=== PATIENT | female | born 1990 | race African-American/Black ===

== ENCOUNTER 2017-07-05 09:12 | Emergency (ER) | payer OTHER ==
[2017-07-05 09:19] VITALS: BP 184/100; PULSE 90; RESP 16; TEMP 97.6; O2SAT 100
--- NOTE | 2017-07-05 10:10 | PD ---
HPI Chief Complaint: Hypertension Time Seen by Provider: 09:27 Travel History International Travel<30 days: No Contact w/Intl Traveler<30days: No Traveled to known affect area: No History of Present Illness HPI Patient 26-year-old female presents emergency department for evaluation of elevated blood pressure. She states that she had a mild headache earlier today which is resolved. 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 She states that she missed a few days of her blood pressure medication but started up again. This is hydrochlorothiazide 25 mg daily. On arrival she feels well but she was urged by her colleagues to come down and be checked out to make sure that her blood pressure and headache was nothing more severe. States symptoms are mild, resolved, associated high blood pressure, no alleviating or exacerbating factors identified. She does not endorse any chest pain shortness breath abdominal pain nausea vomiting or decreased urination. PFSH Past Medical History Asthma: No Blood Disorders: No Anxiety: Yes Depression: No Heart Rhythm Problems: No Cardiovascular Problems: No High Cholesterol: No Chemotherapy: No Chest Pain: No Congestive Heart Failure: No COPD: No Diabetes: No Diminished Hearing: No Endocrine: No Genitourinary: Yes (UTI) Headaches: Yes Immune Disorder: No Musculoskeletal: No Neurologic: No Psychiatric: No Reproductive: No Respiratory: No Immunizations Current: Yes Radiation Therapy: No Sleep Apnea: No Thyroid Disease: No ?: Not : 3 Para: 1 : 2 Past Surgical History Gynecologic Surgery: Yes (pt states "i had abortions" (two in total)) Other Surgery: No Social History Alcohol Use: No Tobacco Use: No Substance Use: No Allergies-Medications (Allergen,Severity, Reaction): Coded Allergies: No Known Allergies (Verified , 05/15/14) Reported Meds & Prescriptions Reported Meds & Active Scripts Active Review of Systems Except as stated in HPI: all other systems reviewed are Neg Physical Exam Narrative GENERAL: Well-developed well-nourished in no obvious distress, quite pleasant peer SKIN: Focused skin assessment warm/dry. HEAD: Atraumatic. Normocephalic. EYES: Pupils equal and round. No scleral icterus. No injection or drainage. ENT: No nasal bleeding or discharge. Mucous membranes pink and moist. NECK: Trachea midline. No JVD. CARDIOVASCULAR: Regular rate and rhythm. No murmur appreciated. RESPIRATORY: No accessory muscle use. Clear to auscultation. Breath sounds equal bilaterally. GASTROINTESTINAL: Abdomen soft, non-tender, nondistended. Hepatic and splenic margins not palpable. MUSCULOSKELETAL: No obvious deformities. No clubbing. No cyanosis. No edema. NEUROLOGICAL: Awake and alert. Cranial nerves II through XII are grossly intact and nonfocal, 5 out of 5 strength in all 4 extremities. PSYCHIATRIC: Appropriate mood and affect; insight and judgment normal. Data Data Last Documented VS Vital Signs Date Time Temp Pulse Resp B/P (MAP) Pulse Ox O2 Delivery O2 Flow Rate FiO2 07/05/17 09:19 97.6 90 16 184/100 (128) 100 Orders Orders Hydrochlorothiazide (Hydrodiuril) (07/05/17 10:15) Ed Discharge Order (07/05/17 10:15) [facility] Medical Decision Making Medical Screen Exam Complete: Yes Emergency Medical Condition: Yes Differential Diagnosis Asymptomatic elevated blood pressure, hypertensive emergency unlikely, intracranial hemorrhage highly unlikely, Narrative Course Patient room to the emergency department, she appears well in no obvious distress. There is no indication to further lower her blood pressure in the emergency department. Discussed with her continuing her blood pressure medication monitoring her blood pressure and if still elevated after a week and she may need to follow-up with her primary care physician for further recommendations i.e. starting a new blood pressure medication. At this time she is stable for discharge no indication further workup at this time. Diagnosis Primary Impression: Headache Additional Impression: Elevated blood pressure reading Disposition: 01 DISCHARGE HOME Condition: Stable Erik Watson MD Jul 05, 2017 10:10
[2017-07-05] MEDS ORDERED: HYDROCHLOROTHIAZIDE 25 MG TAB PO ONE (10:15)
== END 2017-07-05 10:39 | disposition home or self-care (01) ==
LOC: NEPD 09:12
DX: R51 Headache (principal); I10 Essential (primary) hypertension; Z87.448 Personal history of other diseases of urinary system; Z86.59 Personal history of other mental and behavioral disorders
CPT/HCPCS: 99283